=== PATIENT | male | born 1960 | race Caucasian/White ===

== ENCOUNTER 2018-04-21 15:26 | Inpatient (IN) | payer OTHER ==
[~2018-04-21] VITALS: Ht 170.2 cm; Wt 76.1 kg
[~2018-04-21 15:26] MED LIST: None per pt.
[2018-04-21] MEDS ORDERED: SODIUM CHLORIDE 0.9% 1,000ML IVBOLUS ONE (16:00)
[2018-04-21] MEDS ORDERED: SODIUM CHLORIDE FLUSH 10ML SYR IVF ONE (16:00)
[2018-04-21 16:39] LABS: BASOPHILS # (AUTO) 0.03 x10^3/uL (0-0.1); BASOPHILS % (AUTO) 0 % (0-1); EOSINOPHILS % (AUTO) 3 % (1-7); LYMPHOCYTES # (AUTO) 2.17 x10^3/uL (1-3.4); LYMPHOCYTES % (AUTO) 20 % (22-44); MD NO; MEAN CORPUSCULAR HEMOGLOBIN 30.9 pg (27.5-34.5); MEAN CORPUSCULAR HGB CONC 33.6 g/dL (33.2-36.2); MEAN CORPUSCULAR VOLUME 91.9 fL (81-97); MEAN PLATELET VOLUME 9.3 fL (7.4-10.4); MONOCYTES # (AUTO) 0.68 x10^3/uL (0.2-0.8); MONOCYTES % (AUTO) 6 % (2-9); NEUTROPHILS # (AUTO) 7.51 x10^3/uL (1.8-6.8); NEUTROPHILS % (AUTO) 70 % (42-75); PLATELET COUNT 230 x10^3/uL (130-400); RED BLOOD COUNT 4.81 x10^6/uL (4.38-5.82); RED CELL DISTRIBUTION WIDTH 14.1 % (9.4-14.8)
[2018-04-21 16:50] LABS: ALANINE AMINOTRANSFERASE 40 U/L (12-78); ALBUMIN 3.3 g/dL (3.4-5.0); ANION GAP 8 mmol/L (5-15); CALCIUM 7.8 mg/dL (8.5-10.1); CHLORIDE 108 mmol/L (98-107)
[2018-04-21 16:54] LABS: ALKALINE PHOSPHATASE 79 U/L (45-117); BILIRUBIN,TOTAL 0.4 mg/dL (0.2-1.0); CREATININE 1.12 mg/dL (0.7-1.3); TOTAL PROTEIN 6.7 g/dL (6.4-8.2); TROPONIN I < 0.015 ng/mL (0.000-0.045)
[2018-04-21 16:56] LABS: INTERNATIONAL NORMALIZED RATIO 1.03 (0.93-1.1); PROTHROMBIN TIME 10.7 Seconds (9.6-11.5)
[2018-04-21] MEDS ORDERED: OMNIPAQUE 350 MG/ML, 100ML BOTTLE ONE (18:29)
[2018-04-21] MEDS ORDERED: morphine SULFATE 10 MG/ML, 1ML IVPush ONE (18:30)
[2018-04-21] MEDS ORDERED: MORPHINE SULFATE 4 MG/ML, 1ML ONE (18:31)
[2018-04-21] MEDS ORDERED: KETOROLAC 30 MG/1 ML IVPush ONE (19:30)
[2018-04-21] MEDS ORDERED: METHOCARBAMOL 750 MG TABLET PO ONE (19:30)
[2018-04-21] MEDS ORDERED: METHOCARBAMOL 750 MG TABLET ONE (20:11)
[2018-04-21] MEDS ORDERED: KETOROLAC 30 MG/1 ML ONE (20:11)
[2018-04-21] MEDS ORDERED: DOCUSATE 100 MG CAPSULE PO PRN (20:30)
[2018-04-21] MEDS ORDERED: ENALAPRILAT 1.25 MG/ML, 2ML IVPush PRN (20:30)
[2018-04-21] MEDS ORDERED: POLYETHYLENE GLYCOL 17 GM PACKET PO PRN (20:30)
[2018-04-21] MEDS ORDERED: BISACODYL 10 MG SUPP PR PRN (20:30)
[2018-04-21] MEDS ORDERED: ONDANSETRON ODT 4 MG PO PRN (20:30)
[2018-04-21] MEDS ORDERED: morphine SULFATE 10 MG/ML, 1ML IVPush PRN (20:30)
[2018-04-21] MEDS ORDERED: METHOCARBAMOL 750 MG TABLET PO PRN (20:30)
[2018-04-21] MEDS ORDERED: ACETAMINOPHEN 325 MG TABLET PO PRN (20:30)
[2018-04-21] MEDS ORDERED: ONDANSETRON 2MG/ML, 2ML IVPush PRN (20:30)
[2018-04-21 21:09] LABS: TROPONIN I < 0.015 ng/mL (0.000-0.045)
[2018-04-21 22:00] VITALS: BP 118/64
[2018-04-21] MEDS: SODIUM CHLORIDE 0.9% 1,000 ML IV SCH (22:02)
[2018-04-21] MEDS: ENOXAPARIN 40 MG/0.4 ML SQ SCH (22:03)
[2018-04-21 22:05] VITALS: BP 133/73
[2018-04-21 22:10] VITALS: BP 123/82
[2018-04-21 23:52] VITALS: BP 121/78
[2018-04-22 04:18] VITALS: BP 101/50
[2018-04-22] MEDS: HYDROcodone/APAP 5/325 TABLET PO PRN ×3 (05:07→20:15)
[2018-04-22 05:32] LABS: BASOPHILS # (AUTO) 0.02 x10^3/uL (0-0.1); BASOPHILS % (AUTO) 0 % (0-1); EOSINOPHILS # (AUTO) 0.38 x10^3/uL (0-0.4); EOSINOPHILS % (AUTO) 5 % (1-7); LYMPHOCYTES # (AUTO) 2.47 x10^3/uL (1-3.4); LYMPHOCYTES % (AUTO) 35 % (22-44); MD NO; MEAN CORPUSCULAR HEMOGLOBIN 31.5 pg (27.5-34.5); MEAN CORPUSCULAR HGB CONC 33.9 g/dL (33.2-36.2); MEAN CORPUSCULAR VOLUME 92.8 fL (81-97); MEAN PLATELET VOLUME 9.4 fL (7.4-10.4); MONOCYTES # (AUTO) 0.61 x10^3/uL (0.2-0.8); MONOCYTES % (AUTO) 9 % (2-9); NEUTROPHILS # (AUTO) 3.59 x10^3/uL (1.8-6.8); NEUTROPHILS % (AUTO) 51 % (42-75); PLATELET COUNT 214 x10^3/uL (130-400); RED BLOOD COUNT 4.55 x10^6/uL (4.38-5.82); RED CELL DISTRIBUTION WIDTH 14.3 % (9.4-14.8)
[2018-04-22 05:37] LABS: CHLORIDE 110 mmol/L (98-107)
[2018-04-22 05:57] LABS: ALANINE AMINOTRANSFERASE 33 U/L (12-78); ALBUMIN 2.9 g/dL (3.4-5.0); ALKALINE PHOSPHATASE 73 U/L (45-117); ANION GAP 7 mmol/L (5-15); BILIRUBIN,TOTAL 0.6 mg/dL (0.2-1.0); CREATININE 0.89 mg/dL (0.7-1.3); TOTAL PROTEIN 6.2 g/dL (6.4-8.2)
[2018-04-22 07:00] VITALS: BP 118/73
[2018-04-22] MEDS: SODIUM CHLORIDE 0.9% 1,000 ML IV SCH ×2 (08:21→20:06)
[2018-04-22] MEDS ORDERED: REGADENOSON 0.4 MG/5 ML SYRINGE ONE (08:29)
[2018-04-22 14:00] VITALS: BP 120/67
[2018-04-22 19:09] LABS: AMPHETAMINE SCREEN, URINE Negative (Negative); BARBITURATE SCREEN, URINE Negative (Negative); BENZODIAZEPINE SCREEN, URINE Negative (Negative); CANNABINOID SCREEN, URINE Negative (Negative); COCAINE SCREEN, URINE Negative (Negative); METHADONE SCREEN, URINE Negative (Negative); OPIATE SCREEN, URINE Positive (Negative)
[2018-04-22 20:10] VITALS: BP_SYST 131; BP_SYST 133; BP_SYST 141; BP_DIAS 76; BP_DIAS 81; BP_DIAS 88
[2018-04-22] MEDS: ENOXAPARIN 40 MG/0.4 ML SQ SCH (20:15)
[2018-04-23 01:54] VITALS: BP 115/69
[2018-04-23] MEDS: SODIUM CHLORIDE 0.9% 1,000 ML IV SCH (06:00)
[2018-04-23 07:04] VITALS: BP 136/88
[2018-04-23] MEDS ORDERED: METH750T2 PO (07:43)
== END 2018-04-23 10:44 | disposition home or self-care (01) | DRG 312 ==
LOC: ED 16:56 → EDIP 19:34 → 4EST 20:36 → 5SO 23:49 → DCLOUNGE 04-23 10:35
PROVIDERS: ADMIT Internal Medicine; ATTEND Internal Medicine
DX: R55 Syncope and collapse (principal); E44.0 Moderate protein-calorie malnutrition; J98.11 Atelectasis; R56.9 Unspecified convulsions; D72.829 Elevated white blood cell count, unspecified; Z80.9 Family history of malignant neoplasm, unspecified; Z68.26 Body mass index [BMI] 26.0-26.9, adult
CPT/HCPCS: 36415; 71045; 71275; 78452; 80053; 80307; 83605; 83735; 84484; 85025; 85610; 85730; 93005; 93017; 93306; 95819; 96361; 96374; J1650; J1885; J2785; Q9967; A9502; C9898; J2270; J7030